=== PATIENT | female | born 1970 | race Caucasian/White ===

== ENCOUNTER 2017-12-18 09:45 | Emergency (ER) | payer OTHER ==
[~2017-12-18] VITALS: Ht 167.6 cm; Wt 83.9 kg
[2017-12-18 09:59] VITALS: BP 106/70
--- NOTE | 2017-12-18 10:58 | RADIOLOGY REPORT ---
EXAMINATION: XR FOOT, LEFT CLINICAL INFORMATION: Puncture wound. Question foreign body. COMPARISON: None TECHNIQUE: AP, lateral, and oblique views of the left foot. FINDINGS: No radiopaque foreign body is seen in the soft tissues. The bones and soft tissues are normal. No fracture. Alignment is anatomic. Joint spaces are maintained. IMPRESSION: Normal left foot. No radiopaque foreign body seen.
[2017-12-18] MEDS ORDERED: CIPRO500 M1 PO (11:04)
--- NOTE | 2017-12-18 11:04 | ED ANKLE/FOOT INJURY COMPLAINT ---
History of Present Illness General Chief Complaint: Plantar Puncture Wound Stated Complaint: LEFT FOOT PUNCTURE WOUND, STEPPED ON NAIL Source: patient Exam Limitations: no limitations Vital Signs & Intake/Output Vital Signs & Intake/Output Vital Signs Date Time Temp Pulse Resp B/P B/P Pulse O2 O2 Flow FiO2 Mean Ox Delivery Rate 12/18 0959 97.9 87 20 106/70 97 Room Air Allergies Coded Allergies: NO KNOWN ALLERGIES (NONE 12/18/17) Reconcile Medications Ciprofloxacin HCl (Cipro) 500 MG TABLET 1 TAB PO BID foot puncture Triage Note: PT TO ED C/O LEFT FOOT PAIN S/P STEPPING ON A NAIL YESTERDAY. STATES SHE WAS WEARING FLIP FLOPS. THE NAIL WENT THROUGH AND CAME OUT. NEEDS TETANUS SHOT. PT IS CURRENTLY ON ABX FOR UTI. Triage Nurses Notes Reviewed? yes Occurred: yesterday Duration: day(s): (1) Timing: recent history Severity: mild, moderate Pain/Injury Location: Left: Foot. Method of Injury: foot puncture HPI: 47-year-old female comes into the emergency room for further evaluation of puncture wound to left foot. A neelam nail on floor board. Patient reports that she stepped on a nail that went through her shoe and into her foot. She's had associated pain. Some mild swelling. Tetanus shot not up-to-date. (Jamal Pettit) Past History Travel History Traveled to [place] past 21 day No Medical History Any Pertinent Medical History? none Tetanus Vaccine: 06/12/13 Surgical History Surgical History: non-contributory Psychosocial History What is your primary language Togolese Tobacco Use: Current Daily Use Daily Tobacco Use Amount/Type: => 5 Cigarettes daily ETOH Use: denies use Illicit Drug Use: denies illicit drug use Family History Hx Contributory? No (Jamal Pettit) Review of Systems Review of Systems Constitutional: Reports: no symptoms. EENTM: Reports: no symptoms. Respiratory: Reports: no symptoms. Cardiovascular: Reports: no symptoms. GI: Reports: no symptoms. Genitourinary: Reports: no symptoms. Musculoskeletal: Reports: see HPI. Skin: Reports: see HPI. Neurological/Psychological: Reports: no symptoms. Hematologic/Endocrine: Reports: no symptoms. Immunologic/Allergic: Reports: no symptoms. All Other Systems: Reviewed and Negative (Jamal Pettit) Physical Exam Physical Exam General Appearance: well developed/nourished, mild distress Head: atraumatic Eyes: Bilateral: normal appearance. Ears, Nose, Throat: normal ENT inspection, hearing grossly normal Neck: normal inspection Cardiovascular/Respiratory: no respiratory distress Back: normal inspection Leg/Knee/Thigh Left: normal range of motion Ankle Left: normal inspection Foot Left: puncture to left foot, no redness/warmth Neuro/Vascular: normal motor function, normal sensation Tendon: normal tendon function Psychiatric: awake, alert, oriented x 3 Skin: intact, normal color, warm/dry Diagram Feet Bottom: 1) (Jamal Pettit) Progress Differential Diagnosis: cellulitis, septic arthritis, fracture, dislocation, sprain, contusion, foreign body, cellulitis Plan of Care: Current Medications Sig/Lolly Start time Last Medication Dose Stop Time Status Admin Tetanus/Diphtheria 0.5 ML ONCE ONE 12/18 1115 UNVr 12/18 Toxoids Adsorbed 12/18 1116 1123 (Decavac) (Jamal Pettit) Departure Departure Disposition: HOME OR SELF CARE Condition: Stable Clinical Impression Primary Impression: Puncture wound of left foot Referrals: Miriam Mora (PCP/Family) Additional Instructions: take ciprofloxacin as prescribed. Warm soaks of left foot. Watch for signs of infection such as redness or discharge fever chills. Please go over all results of today's visit with your primary care doctor. Contact your primary care doctor to let them know you were here in the emergency room. There may be nonspecific findings which may not be related to your visit today here in the emergency room but may require further evaluation and chronic monitoring by your primary care doctor. If you had a laceration today the chance of foreign body always remains. You should follow-up with your primary care doctor for recheck in 3-5 days for a wound check. If you had an x-ray done there is a chance that a fracture could have been missed on initial read and you should follow-up with your primary care doctor for repeat x-rays if symptoms persist. If your blood pressure was elevated here in the emergency room please have rechecked by [facility] primary care doctor within the next 48. If you were prescribed a narcotic here in the emergency room or any type of controlled substances you're not allowed to drive while taking this medication or operate any type of heavy machinery. Narcotics can make you feel lightheaded dizziness nausea and can cause constipation. You may need to machine operator hop picker a stool softener. Thank you for choosing [facility] emergency room. Please return to the emergency room immediately if you have any other concerns worsening of symptoms. Departure Forms: Customer Survey General Discharge Information Prescriptions: Current Visit Scripts Ciprofloxacin HCl (Cipro) 1 TAB PO BID #14 TAB (Jamal Pettit) PA/DISTRIBUTION ASSOCIATE Co-Sign Statement Statement: ED Attending supervision documentation- [] I saw and evaluated the patient. I have also reviewed all the pertinent lab results and diagnostic results. I agree with the findings and the plan of care as documented in the PA's/DISTRIBUTION ASSOCIATE's documentation. [X] I have reviewed the ED Record and agree with the PA's/DISTRIBUTION ASSOCIATE's documentation. [] Additions or exceptions (if any) to the PAs/DISTRIBUTION ASSOCIATE's note and plan are summarized below: [] (Michael CAMARGO,Sandro Gomes)
== END 2017-12-18 11:25 ==
LOC: ERH 09:45
DX: S91.332A Puncture wound without foreign body, left foot, initial encounter (principal); W45.0XXA Nail entering through skin, initial encounter; Y92.9 Unspecified place or not applicable; Y93.9 Activity, unspecified
CPT/HCPCS: 73630-LT; 90471; 90714